=== PATIENT | male | born 1950 | race Caucasian/White ===

== ENCOUNTER 2017-06-28 12:40 | Outpatient (CLI) | payer MEDICARE ==
--- NOTE | 2017-06-28 13:45 | CT ---
CT BRAIN WITHOUT CONTRAST: HISTORY: S06.5X0A. Headache. Hemorrhage. COMPARISON: None available. FINDINGS: There is a small sylvian fissure subarachnoid hemorrhage. No acute territorial infarction. No loss of normal casillas-white matter. The calvarium is intact. The orbits are normal. IMPRESSION: Small volume left parietal subarachnoid hemorrhage extending along the sylvian fissure and central beltran lcus. There is also associated left parietal superficial soft tissue contusion and hematoma. The ca lvarium itself is intact. No basilar cistern hemorrhage. No intraventricular hemorrhage. No hydroc ephalus. POS: [facility]
== END 2017-06-28 12:41 | disposition home or self-care (01) ==
LOC: TBSIIMAG 12:40
PROVIDERS: ATTEND Neurological Surgery
DX: S06.5X0A Traumatic subdural hemorrhage without loss of consciousness, initial encounter (principal)
CPT/HCPCS: 70450

== ENCOUNTER 2018-09-26 13:38 | Outpatient (CLI) | payer MEDICARE ==
--- NOTE | 2018-09-26 14:56 | RAD ---
PA AND LATERAL CHST: HISTORY: Cough and congestion. FINDINGS: The heart size and mediastinum are within normal limits. The lungs are clear of any infiltrative pro cess. No significant bony findings. IMPRESSION: 1. No active intrathoracic disease. 2. Incidental note is made of an old right clavicle fracture. POS: OFF
== END 2018-09-26 13:39 | disposition home or self-care (01) ==
LOC: BICRAD 13:38
PROVIDERS: ATTEND Family Medicine
DX: J18.9 Pneumonia, unspecified organism (principal)
CPT/HCPCS: 71046